=== PATIENT | female | born 1960 | race Caucasian/White ===

== ENCOUNTER 2024-01-16 14:37 | Emergency (ER) | payer OTHER ==
--- NOTE | 2024-01-16 15:40 | Ultrasound Report ---
PROCEDURE: Duplex Ext Veins Left INDICATIONS: r/o DVT LLE TECHNIQUE: Real-time imaging, as well as color and pulse Doppler interrogation, were performed of the lower extr emity deep veins from the inguinal ligament to the popliteal fossa. Attempted visualization of the ca lf veins was performed. COMPARISON: None. FINDINGS: The deep veins are normally compressible, and free of intraluminal thrombus. Color and pu lse Doppler demonstrate normal phasic intraluminal flow. There is normal augmentation response to di stal compression maneuver. IMPRESSION: No deep venous thrombosis of the visualized lower extremity. Reviewed by: Kush Mcdonnell MD on 01/16/2024 3:38 PM PDT Approved by: Kush Mcdonnell MD on 01/16/2024 3:38 PM PDT Station ID: [id number]
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
[2024-01-16 16:54] VITALS: BP 147/87; O2SAT 100
== END 2024-01-16 16:48 | disposition home or self-care (01) ==
LOC: ED 14:37
DX: M79.662 Pain in left lower leg (principal); I25.2 Old myocardial infarction; E03.9 Hypothyroidism, unspecified
CPT/HCPCS: 99283; 99284